=== PATIENT | male | born 1990 | race African-American/Black ===

== ENCOUNTER 2023-05-24 00:22 | Emergency (ER) | payer OTHER ==
[~2023-05-24] VITALS: Ht 172.7 cm; Wt 79.4 kg
[2023-05-24 00:30] VITALS: BP 127/74; PULSE 84; RESP 17; TEMP 97.7; O2SAT 99
== END 2023-05-24 04:30 | disposition left against medical advice (07) ==
LOC: MED 00:22
DX: M25.512 Pain in left shoulder (principal); Z53.21 Procedure and treatment not carried out due to patient leaving prior to being seen by health care provider
CPT/HCPCS: 99281

== ENCOUNTER 2023-05-27 23:02 | Emergency (ER) | payer OTHER ==
[~2023-05-27] VITALS: Ht 172.7 cm; Wt 77.1 kg
[2023-05-27 23:09] VITALS: BP 120/62; PULSE 80; RESP 15; TEMP 97.9; O2SAT 100
[2023-05-28] MEDS ORDERED: NAPR-54 PO (01:03)
== END 2023-05-28 01:07 | disposition home or self-care (01) ==
LOC: MED 23:02
DX: M25.512 Pain in left shoulder (principal)
CPT/HCPCS: 99282

== ENCOUNTER 2023-06-04 21:57 | Emergency (ER) | payer OTHER ==
[~2023-06-04] VITALS: Ht 167.6 cm; Wt 68.0 kg
[~2023-06-04 21:57] MED LIST: NAPR-54 PO
[2023-06-04 22:00] VITALS: BP 112/68; PULSE 88; RESP 17; TEMP 97.6; O2SAT 100
[2023-06-05] MEDS ORDERED: KETOROLAC 30 MG/ML VIAL IM ONE (01:45)
[2023-06-05] MEDS ORDERED: NAPR-1704 PO (02:13)
[2023-06-05] MEDS ORDERED: ACET-10509 PO (02:13)
[2023-06-05] MEDS ORDERED: DICL20GE TP (02:13)
[2023-06-05 02:15] VITALS: BP 112/68; PULSE 88; RESP 17; TEMP 97.6; O2SAT 100
== END 2023-06-05 02:15 | disposition home or self-care (01) ==
LOC: MED 21:57
DX: S49.92XA Unspecified injury of left shoulder and upper arm, initial encounter (principal); Z79.899 Other long term (current) drug therapy; Z79.1 Long term (current) use of non-steroidal anti-inflammatories (NSAID); X58.XXXA Exposure to other specified factors, initial encounter; Y93.B9 Activity, other involving muscle strengthening exercises; Y92.89 Other specified places as the place of occurrence of the external cause; Y99.8 Other external cause status
CPT/HCPCS: 73030; 99283; J1885

== ENCOUNTER 2023-06-19 02:45 | Emergency (ER) | payer OTHER ==
[~2023-06-19] VITALS: Ht 172.7 cm; Wt 73.0 kg
[~2023-06-19 02:45] MED LIST changes: +ACET-10509 PO; +DICL20GE TP; +NAPR-1704 PO
[2023-06-19 02:50] VITALS: BP 117/81; PULSE 107; RESP 20; TEMP 98.8; O2SAT 99
[2023-06-19] MEDS ORDERED: KETOROLAC 30 MG/ML VIAL IM ONE (04:25)
[2023-06-19] MEDS ORDERED: HYDROcodone/APAP 5/325 MG 1 TAB TAB PO ONE (04:25)
[2023-06-19] MEDS ORDERED: CYCL-711 PO (04:32)
[2023-06-19] MEDS ORDERED: NAPR-54 PO (04:32)
== END 2023-06-19 05:05 | disposition home or self-care (01) ==
LOC: MED 02:45
DX: S46.912A Strain of unspecified muscle, fascia and tendon at shoulder and upper arm level, left arm, initial encounter (principal); Z79.899 Other long term (current) drug therapy; Z79.1 Long term (current) use of non-steroidal anti-inflammatories (NSAID); X50.0XXA Overexertion from strenuous movement or load, initial encounter; Y92.89 Other specified places as the place of occurrence of the external cause; Y93.89 Activity, other specified; Y99.8 Other external cause status
CPT/HCPCS: 96372; 99283; J1885

== ENCOUNTER 2023-09-04 00:50 | Emergency (ER) | payer OTHER ==
[~2023-09-04] VITALS: Ht 170.2 cm; Wt 74.8 kg
[~2023-09-04 00:50] MED LIST changes: +CYCL-711 PO
[2023-09-04 00:55] VITALS: BP 127/80; PULSE 78; RESP 16; TEMP 97.7; O2SAT 97
[2023-09-04 01:45] VITALS: BP 127/80; PULSE 78; RESP 16; TEMP 97.7; O2SAT 97
== END 2023-09-04 01:52 | disposition home or self-care (01) ==
LOC: MED 00:50
DX: S43.402A Unspecified sprain of left shoulder joint, initial encounter (principal); Z79.899 Other long term (current) drug therapy; X58.XXXA Exposure to other specified factors, initial encounter; Y93.67 Activity, basketball; Y92.310 Basketball court as the place of occurrence of the external cause; Y99.8 Other external cause status
CPT/HCPCS: 73030; 99283